=== PATIENT | female | born 1930 | race Caucasian/White ===

== ENCOUNTER 2019-08-28 14:32 | Emergency (ER) | payer OTHER ==
[~2019-08-28] VITALS: Ht 152.4 cm; Wt 44.0 kg
[2019-08-28 14:40] VITALS: BP 124/60
--- NOTE | 2019-08-28 14:55 | NUR ---
RR EVEN AND UNLABORED
--- NOTE | 2019-08-28 14:55 | NUR ---
88 Y/O FEMALE C/O FACIAL RASH/BILATERAL EAR RASH. FACE/EARS ARE HOT TO TOUCH/RED/BURNNING/SWOLLEN/PEELING SKIN/ITCHY. PT DENIES ANY TRAUMA OR CHANGES TO ROUTINE. PT HAS NOT TAKEN ANYTHING FOR THE RASH. DENIES N/V/D; AAOX4 WITH EVEN AND STEADY GAIT; PT DENIES ANY FEVER, CP, SOB, OR COUGH AT THIS TIME; PATIENT STATES PAIN OF 0/10 AT THIS TIME; VSS; PATIENT POSITIONED FOR COMFORT; HOB ELEVATED; BEDRAILS UP X1; BED DOWN AND WHEELS LOCKED. MEDICAL HX: STROKE 1 YEAR AGO/HYPERLIPIDEMIA/BREAST CANCER 2014/LEFT LUMPTECTOMY 05/2015 ALLERGIES: CODEINE/POSSIBLY PREDNISONE BUT PT UNSURE
--- NOTE | 2019-08-28 14:56 | NUR ---
AMBULATED TO BED 6
--- NOTE | 2019-08-28 15:01 | NUR ---
AT BEDSIDE EXAMINING PT
[2019-08-28] MEDS ORDERED: methylPREDNISolone SS 125 MG/2 ML VIAL IM ONE (15:05)
[2019-08-28 15:42] VITALS: BP 124/60
--- NOTE | 2019-08-28 15:42 | NUR ---
Patient discharged with v/s stable. Written and verbal after care instructions given and explained. Patient alert, oriented and verbalized understanding of instructions. Ambulatory with steady gait. All questions addressed prior to discharge. ID band removed. Patient advised to follow up with PMD. Rx of PREDNISONE/BENADRYL/HYDROCORTISONE given. Patient educated on indication of medication including possible reaction and side effects. Opportunity to ask questions provided and answered.
== END 2019-08-28 15:42 | disposition home or self-care (01) ==
LOC: MED 14:32
DX: R21 Rash and other nonspecific skin eruption (principal); I10 Essential (primary) hypertension; E78.00 Pure hypercholesterolemia, unspecified; Z86.79 Personal history of other diseases of the circulatory system
CPT/HCPCS: 96372; 99283; J2930